=== PATIENT | female | born 1995 | race Caucasian/White ===

== ENCOUNTER 2024-04-28 19:49 | Emergency (ER) | payer BC, SELFPAY ==
[2024-04-28 19:55] VITALS: BP 145/104; PULSE 79; RESP 18; TEMP 37.1; O2SAT 99; BMI 33.9
[2024-04-28 20:41] LABS: Microscopic, Urine URINE MICROSCOPIC (MICROSCOPIC)
[2024-04-28 20:46] LABS: Urine Pregnancy, HCG Qual. Negative (Negative)
[2024-04-28 20:47] LABS: Appearance,Urine Clear (Clear); Color,Urine Yellow (Yellow)
[2024-04-28 20:48] LABS: Bilirubin,Urine Negative (Negative); Blood, Urine Negative (Negative); Glucose,Urine (UA) Negative (Negative); Ketones,Urine Negative (Negative); Leukocyte Esterase,Urine Negative (Negative); Nitrate,Urine Negative (Negative); Protein,Urine Negative (Negative); Specific Gravity, Urine > 1.030 (1.005-1.030); Urobilinogen,Urine 0.2 EU/dl (0.2)
--- NOTE | 2024-04-28 20:54 | ED_ITS ---
Discharge Plan Disposition Patient Disposition: Home, Self-Care Condition: Good Prescriptions Prescriptions: New polyethylene glycol 3350 [Miralax] 17 gram/dose powder 17 g PO BID Qty: 1020 0RF No Action Wegovy 1 mg/0.5 mL Pen Injector 1 mg SQ WEEKLY Rx Instructions: administer weeks 9 through 12 of therapy Referrals Follow up/Referrals: Florina Ivory MD [Primary Care Provider] - See instructions Activity Restrictions/Add. Instructions Additional Instructions/Restrictions: Today your evaluated in the emergency department. Your urinalysis was unremarkable for any infectious process. Please increase your fluid intake. Please take the MiraLAX as we discussed. Please use warm sitz bath's for hem orrhoid. Follow-up with your PCP within 7 days. Return to the ED for worsening of condition. Clinical Impressions Clinical Impression: Constipation Qualifiers: Constipation type: other constipation type Qualified Code(s): K59.09 - Other constipation Hemorrhoid Qualifiers: Hemorrhoid type: first degree Qualified Code(s): K64.0 - First degree hemorrhoids Instructions Patient Instructions: DI for Hemorrhoids, DI for Constipation Print Language Print Language: Wallisian Discharge ED Provider: Kaleb Lovelace General Adult HPI <Adriana Busch APRN - Last Filed: 04/28/24 20:58> General Chief complaint: Abdominal Pain Stated complaint: loosing blood thru bowels Time Seen by Provider: 04/28/24 20:11 Mode of Arrival: Ambulatory Source of Information: Patient Description of Symptoms (Recalled from ER Triage Doc. by RN): Pt presents with c/o abdominal cramping . Pt states this morning she was vomiting/sweating/felt fatigued) then began to have bloody mucous bowel movement. History of Present Illness HPI narrative: Patient is a 29-year-old female no significant PMHx who presents to the ED for hard stool, felt like she was going to pass out while trying to have a bowel movement on the toilet earlier. Patient states that she has started weight loss injections and feels that her stool has been harder since then. She states that today she was sitting on the toilet attempting to have a bowel movement when her stool felt hard, she suddenly became sweaty and had a near syncopal episode. Related Data Home Medications ?Medication ?Instructions ?Recorded ?Confirmed semaglutide (weight loss) 1 mg/0.5 1 mg SQ WEEKLY 04/28/24 04/28/24 mL subcutaneous pen injector (Wegovy) Previous Rx's ?Medication ?Instructions ?Recorded polyethylene glycol 3350 17 17 g PO BID #1,020 grams 04/28/24 gram/dose oral powder (Miralax) Allergies Allergy/AdvReac Type Severity Reaction Status Date / Time amoxicillin Allergy Anaphylaxis Verified 04/28/24 20:01 Penicillins Allergy Anaphylaxis Verified 04/28/24 20:00 [facility] <Adriana Busch APRN - Last Filed: 04/28/24 20:58> [facility] Disclaimer: The information contained in this section may have been updated after the patient was seen, as this information can be updated by other users. Social History (Updated 04/28/24 @ 20:01 by Nataliya Romo RN) Smoking Status: Current every day smoker alcohol intake: never current occupational status: employed Travel in the last 8 weeks: None Have you lived/traveled outside [place] in past 30 days?: No Contact w/someone who lives/traveled outside [place] past 30 days?: No Exposure to someone with infectious disease in past 14 days?: No Do you have a fever (greater than 100.4 F or 38 C)?: No Have you tested positive for COVID-19: No Exposed to someone with COVID-19 in past 14 days?: No Do you have a sore throat?: No Do you have a cough?: No Do you have any weakness?: No Do you have any diarrhea?: No Are you experiencing any unusual bleeding?: No Do you have any muscle aches/pain?: No Do you have any abdominal pain?: No Are you experiencing loss of taste or smell?: No <Adriana Busch APRN - Last Filed: 04/28/24 20:58> ROS Obtained: Yes Systems reviewed as appropriate & no additional complaints except as documented Physical Exam <Adriana Busch APRN - Last Filed: 04/28/24 20:58> General General appearance: alert and in no apparent distress Head Head exam: atraumatic and normocephalic Eye Eye exam: Present normal appearance and PERRL ENT ENT exam: Present normal exam Neck Neck exam: Present normal inspection Chest Chest inspection: Present normal inspection and symmetric chest wall rise; Absent tenderness Respiratory Respiratory exam: Present normal lung sounds bilaterally Cardiovascular Cardiovascular exam: Present regular rate Abdominal Exam Abdominal exam: Present soft and normal bowel sounds; Absent tenderness Extremities Exam Extremities exam: Present normal inspection and full ROM Back Exam Back exam: Present normal inspection and full ROM Neurological Exam Neurological exam: Present alert and oriented X3 Psychiatric Psychiatric exam: Present normal affect and normal mood Skin Skin exam: Present warm and dry Other Other exam information: Small hemorrhoid noted in rectal area, no bleeding Medical Decision Making <Adriana Busch APRN - Last Filed: 04/28/24 20:58> Medical Records Screening: Per USPSTF and CDC recommendations, given the prevalence of disease in our region, it is our hospital?s policy to screen for HIV and viral Hepatitis for all patients aged 18 and over and those with ongoing risk factors. Nelson Inquiry Pt receiving controlled substance: No Nelson was queried for this patient: No Vital Signs: 04/28/24 19:55 04/28/24 21:02 Temperature 98.8 F 98.5 F Temperature Source Temporal Artery Scan Oral Pulse Rate 84 Pulse Rate [Right] 79 Respiratory Rate 18 16 Blood Pressure 154/93 H Blood Pressure [Right Arm] 145/104 H Blood Pressure Mean [Right Arm] 117 Blood Pressure Source Automatic Cuff Blood Pressure Source [Right Arm] Automatic Cuff Blood Pressure Position Supine Blood Pressure Position [Right Arm] Sitting 02 Sat by Pulse Oximetry 99 Oxygen Delivery Method Room Air Room Air Lab Data Lab Results 04/28/24 20:10: Urine Color Yellow, Urine Appearance Clear, Urine pH 5.0, Ur Specific Culver > 1.030 H, Urine Protein Negative, Urine Glucose (UA) Negative, Urine Ketones Negative, Urine Blood Negative, Urine Nitrate Negative, Urine Bilirubin Negative, Urine Urobilinogen 0.2, Ur Leukocyte Esterase Negative, Urine RBC None, Urine WBC Occasional, Ur Squamous Epith Cells 5-10, Urine Bacteria Trace, Urine HCG, Qual Negative Orders (Tests/Meds): ORDERS Category Date Time Status Urinalysis and Microscopic Stat Lab 04/28/24 20:10 Completed Urine , HCG Qual. Stat Lab 04/28/24 20:10 Completed Medical Decision Narrative: In summary, patient is a 29-year-old female no significant PMHx who presents to the ED for hard stool, felt like she was going to pass out while trying to have a bowel movement on the toilet earlier. Patient states that she has started weight loss injections and feels that her stool has been harder since then. She states that today she was sitting on the toilet attempting to have a bowel movement when her stool felt hard, she suddenly became sweaty and had a near syncopal episode. Patient states she was able to slowly lie down on the floor and symptoms completely resolved. She states that after this episode she wiped her rectal area and had blood. Has not experienced this before but reports tenderness around the rectal area. Denies fever, chills, bodyaches, chest pain, shortness of breath, abdominal pain, nausea, vomiting, dysuria. Upon initial physical exam patient is alert, oriented and cooperative. She is hemodynamically stable. Her physical exam with corporate associate in room was remarkable for a very small hemorrhoid, no active bleeding. Abdomen is soft and nontender. Urinalysis unremarkable for any infectious process. test negative. Discussed with patient that she most likely experienced a vagal episode due to constipation. Advised her we can send MiraLAX to the pharmacy she will need to use this twice a day until her stools are soft. Advised her that she can continue the MiraLAX once a day while taking her weight loss injections as this is a side effect. We discussed hemorrhoids, advised her to use a sitz bath and follow-up with PCP. We discussed return precautions to the ED including worsening of symptoms. Patient was hemodynamically stable and verbalized understanding of discharge instructions. <Kaleb Lovelace MD - Last Filed: 04/28/24 21:23> Vital Signs: 04/28/24 19:55 04/28/24 21:02 Temperature 98.8 F 98.5 F Temperature Source Temporal Artery Scan Oral Pulse Rate 84 Pulse Rate [Right] 79 Respiratory Rate 18 16 Blood Pressure 154/93 H Blood Pressure [Right Arm] 145/104 H Blood Pressure Mean [Right Arm] 117 Blood Pressure Source Automatic Cuff Blood Pressure Source [Right Arm] Automatic Cuff Blood Pressure Position Supine Blood Pressure Position [Right Arm] Sitting 02 Sat by Pulse Oximetry 99 Oxygen Delivery Method Room Air Room Air Lab Data Lab Results 04/28/24 20:10: Urine Color Yellow, Urine Appearance Clear, Urine pH 5.0, Ur Specific Culver > 1.030 H, Urine Protein Negative, Urine Glucose (UA) Negative, Urine Ketones Negative, Urine Blood Negative, Urine Nitrate Negative, Urine Bilirubin Negative, Urine Urobilinogen 0.2, Ur Leukocyte Esterase Negative, Urine RBC None, Urine WBC Occasional, Ur Squamous Epith Cells 5-10, Urine Bacteria Trace, Urine HCG, Qual Negative Orders (Tests/Meds): ORDERS Category Date Time Status Urinalysis and Microscopic Stat Lab 04/28/24 20:10 Completed Urine , HCG Qual. Stat Lab 04/28/24 20:10 Completed Medical Decision Narrative: In summary, patient is a 29-year-old female no significant PMHx who presents to the ED for hard stool, felt like she was going to pass out while trying to have a bowel movement on the toilet earlier. Patient states that she has started weight loss injections and feels that her stool has been harder since then. She states that today she was sitting on the toilet attempting to have a bowel movement when her stool felt hard, she suddenly became sweaty and had a near syncopal episode. Patient states she was able to slowly lie down on the floor and symptoms completely resolved. She states that after this episode she wiped her rectal area and had blood. Has not experienced this before but reports tenderness around the rectal area. Denies fever, chills, bodyaches, chest pain, shortness of breath, abdominal pain, nausea, vomiting, dysuria. Upon initial physical exam patient is alert, oriented and cooperative. She is hemodynamically stable. Her physical exam with corporate associate in room was remarkable for a very small hemorrhoid, no active bleeding. Abdomen is soft and nontender. Urinalysis unremarkable for any infectious process. test negative. Discussed with patient that she most likely experienced a vagal episode due to constipation. Advised her we can send MiraLAX to the pharmacy she will need to use this twice a day until her stools are soft. Advised her that she can continue the MiraLAX once a day while taking her weight loss injections as this is a side effect. We discussed hemorrhoids, advised her to use a sitz bath and follow-up with PCP. We discussed return precautions to the ED including worsening of symptoms. Patient was hemodynamically stable and verbalized understanding of discharge instructions. I was consulted by the GIOVANNY, and we discussed the complexity of the problems being addressed. I approved the treatment and management plan for this patient's care in the Emergency Department, thus performing a substantive portion of the medical decision making. Kaleb Lovelace MD Critical Care <Adriana Busch APRN - Last Filed: 04/28/24 20:58> Critical Care Time Critical Care Time: No
[2024-04-28 21:02] VITALS: BP 154/93; PULSE 84; RESP 16; TEMP 36.9; O2SAT 99
[2024-04-28 21:05] LABS: Bacteria,Urine Trace /lpf; WBC,Urine Occasional #/hpf (0-3)
== END 2024-04-28 21:03 | disposition home or self-care (01) ==
PROVIDERS: Nurse Practitioner; Emergency Provider Emergency Medicine; PCP Family Medicine
DX: K59.09 Other constipation (principal); K64.0 First degree hemorrhoids; R10.9 Unspecified abdominal pain; R55 Syncope and collapse; R11.10 Vomiting, unspecified; R61 Generalized hyperhidrosis; R53.83 Other fatigue; K92.1 Melena; Z72.0 Tobacco use
CPT/HCPCS: 81001; 81025; 99283